=== PATIENT | female | born 1955 | race African-American/Black ===

== ENCOUNTER 2017-06-08 02:04 | Inpatient (IN) ==
[2017-06-08] MEDS ORDERED: ALBUTEROL/IPRATROPIUM 3 ML NEB RESP TX STA (03:54)
[2017-06-08] MEDS ORDERED: methylPREDNISolone SOD SUC 125 MG/2 ML VIAL IV STA (03:54)
[2017-06-08] MEDS ORDERED: ONDANSETRON 4 MG/2 ML VIAL IV STA (03:54)
[2017-06-08] MEDS ORDERED: methylPREDNISolone SOD SUC 125 MG/2 ML VIAL ONE (04:08)
[2017-06-08] MEDS ORDERED: ONDANSETRON 4 MG/2 ML VIAL ONE (04:08)
[2017-06-08 04:32] LABS: INR 1.2; PT Patient Result 12.3 SECS; Partial Thromboplastin Time 30.6 SECS (0-40)
[2017-06-08 04:41] LABS: Alanine Aminotransferase 19 U/L (13-56); Albumin 3.2 G/DL (3.4-5.0); Alkaline Phosphatase 58 U/L (45-117); Aspartate Amino Transferase 25 U/L (0-37); Bilirubin,Total < 0.39 MG/DL (0.2-1.0); Blood Urea Nitrogen 18 MG/DL (7-18); Glucose 185 MG/DL (74-106); Osmolality,Calculated 289.1 MOS/KG (273-304); Potassium 4.5 MMOL/L (3.5-5.1); Sodium 142 MMOL/L (136-145); Total Protein 6.6 G/DL (6.4-8.3)
[2017-06-08 04:42] LABS: Troponin I Only 0.049 NG/ML (0.00-0.045)
[2017-06-08 04:58] LABS: Basophils # 0.1 10*3/uL (0.0-0.2); Basophils % 0.5 % (0.0-0.8); Eosinophils # 0.1 10*3/uL (0.0-0.87); Eosinophils % 0.5 % (0.00-10.9); Hemoglobin 9.4 GM/DL (12.0-16.0); Immature Granulocytes % 0.5 %; Immature Granulocytes Absolute 0.05 #; Mean Corpuscular HGB Conc 31.3 GM/DL (32-36); Mean Corpuscular Hemoglobin 32 PG (27-34); Mean Corpuscular Volume 101.7 FL (87-102); Mean Platelet Volume 12.4 FL (9.6-12.0); Monocytes # 0.8 10*3/uL (0.11-0.8); Monocytes % 7.3 % (1.7-12.7); Neutrophils # 8.1 10*3/uL (1.4-7.4); Neutrophils % 73.2 % (38.7-73.9); Red Blood Count 2.95 MC/CUMM (3.8-5.5); Red Cell Distribution Width 14.4 % (9.3-17.3); White Blood Count 11.1 T/CUMM (4-12)
[2017-06-08 05:00] LABS: Platelet Count 105 T/CUMM (130-400)
[2017-06-08] MEDS ORDERED: FUROSEMIDE 40 MG/4 ML VIAL IV STA (05:49)
[2017-06-08] MEDS ORDERED: FUROSEMIDE 40 MG/4 ML VIAL ONE (06:25)
[2017-06-08] MEDS ORDERED: ONDANSETRON 4 MG/2 ML VIAL IV PRN (08:13)
[2017-06-08] MEDS ORDERED: GLUCAGON 1 MG VIAL IM PRN (08:13)
[2017-06-08] MEDS ORDERED: DEXTROSE 50% 25 GM/50 ML VIAL IV PRN (08:13)
[2017-06-08] MEDS ORDERED: PANTOPRAZOLE 40 MG TABLET PO SCH (09:00)
[2017-06-08] MEDS: FERROUS SULFATE 325 MG TABLET PO SCH (11:07)
[2017-06-08] MEDS: sulfaSALAzine 500 MG TABLET PO SCH ×3 (11:07→20:08)
[2017-06-08] MEDS: azaTHIOprine 50 MG TABLET PO SCH ×2 (11:07→20:09)
[2017-06-08] MEDS: predniSONE 10 MG TABLET PO SCH (11:08)
[2017-06-08] MEDS: POTASSIUM CHLORIDE 20 MEQ/15 ML UDCUP PO SCH (11:08)
[2017-06-08] MEDS: PANTOPRAZOLE 40 MG TABLET PO SCH (11:08)
[2017-06-08] MEDS: INSULIN REGULAR 100 UNIT/ML SUBCUT SCH ×3 (11:19→20:08)
[2017-06-08] MEDS: ISOSORBIDE MONONITRATE 30 MG TABLET PO SCH (17:52)
[2017-06-08] MEDS: CARVEDILOL 25 MG TABLET PO SCH (17:52)
[2017-06-08] MEDS: QUEtiapine 25 MG TABLET PO SCH (20:08)
[2017-06-08] MEDS: ESCITALOPRAM 10 MG TABLET PO SCH (20:09)
[2017-06-09 06:45] LABS: Basophils % 0.1 % (0.0-0.8); Eosinophils % 0.1 % (0.00-10.9); Hematocrit 24.6 VOL% (35.7-47.0); Hemoglobin 7.6 GM/DL (12.0-16.0); Immature Granulocytes % 0.5 %; Immature Granulocytes Absolute 0.04 #; Lymphocytes # 1.3 10*3/uL (1.4-4.0); Lymphocytes % 16.6 % (21.3-54.2); Mean Corpuscular HGB Conc 30.9 GM/DL (32-36); Mean Corpuscular Hemoglobin 31 PG (27-34); Mean Corpuscular Volume 100.8 FL (87-102); Mean Platelet Volume 12.2 FL (9.6-12.0); Monocytes % 12.6 % (1.7-12.7); Neutrophils # 5.6 10*3/uL (1.4-7.4); Neutrophils % 70.1 % (38.7-73.9); Platelet Count 171 T/CUMM (130-400); Red Blood Count 2.44 MC/CUMM (3.8-5.5); Red Cell Distribution Width 14.9 % (9.3-17.3)
[2017-06-09 07:12] LABS: Macrocytosis Slight; Poikilocytosis 1+
[2017-06-09 07:14] LABS: Calcium 8.1 MG/DL (8.5-10.1); Osmolality,Calculated 287.3 MOS/KG (273-304); Potassium 4.2 MMOL/L (3.5-5.1)
[2017-06-09] MEDS: INSULIN REGULAR 100 UNIT/ML SUBCUT SCH ×4 (07:48→20:51)
[2017-06-09] MEDS: predniSONE 10 MG TABLET PO SCH (09:11)
[2017-06-09] MEDS: sulfaSALAzine 500 MG TABLET PO SCH ×3 (09:11→20:51)
[2017-06-09] MEDS: POTASSIUM CHLORIDE 20 MEQ/15 ML UDCUP PO SCH (09:11)
[2017-06-09] MEDS: FERROUS SULFATE 325 MG TABLET PO SCH (09:11)
[2017-06-09] MEDS: azaTHIOprine 50 MG TABLET PO SCH ×2 (09:12→20:51)
[2017-06-09] MEDS: PANTOPRAZOLE 40 MG TABLET PO SCH (09:12)
[2017-06-09] MEDS: CARVEDILOL 25 MG TABLET PO SCH ×2 (09:12→16:43)
[2017-06-09] MEDS: ZINC OXIDE PASTE 113 GM TUBE TOP SCH ×2 (14:35→20:51)
[2017-06-09] MEDS: ISOSORBIDE MONONITRATE 30 MG TABLET PO SCH (16:43)
[2017-06-09] MEDS: ESCITALOPRAM 10 MG TABLET PO SCH (20:51)
[2017-06-09] MEDS: QUEtiapine 25 MG TABLET PO SCH (20:51)
[2017-06-10] MEDS: ZINC OXIDE PASTE 113 GM TUBE TOP SCH ×2 (08:00→23:48)
[2017-06-10] MEDS: INSULIN REGULAR 100 UNIT/ML SUBCUT SCH ×4 (08:07→20:29)
[2017-06-10] MEDS ORDERED: FUROSEMIDE 40 MG/4 ML VIAL IV ONE (09:35)
[2017-06-10 09:51] LABS: Hematocrit 27.5 VOL% (35.7-47.0); Hemoglobin 8.5 GM/DL (12.0-16.0)
[2017-06-10] MEDS ORDERED: ATORVASTATIN 20 MG TABLET PO ONE (10:39)
[2017-06-10 10:45] LABS: ABG Base Excess -2.8 MMOL/L (-2.5-2.5); ABG HCO3 21.9 MMOL/L (20-26); ABG Oxygen Saturation 85.7 % (95-100); ABG PCO2 48.5 MM HG (35-48); ABG PH 7.298 (7.35-7.45); ABG PO2 62.2 MM HG (80-95); ABG TCO2 22.2 MMOL/L (23-27); Allen Test Positive
[2017-06-10] MEDS: CARVEDILOL 25 MG TABLET PO SCH ×2 (10:54→16:28)
[2017-06-10] MEDS: sulfaSALAzine 500 MG TABLET PO SCH ×3 (10:55→20:29)
[2017-06-10] MEDS: PANTOPRAZOLE 40 MG TABLET PO SCH (10:56)
[2017-06-10] MEDS: FERROUS SULFATE 325 MG TABLET PO SCH (10:56)
[2017-06-10] MEDS: predniSONE 10 MG TABLET PO SCH (10:56)
[2017-06-10] MEDS: POTASSIUM CHLORIDE 20 MEQ/15 ML UDCUP PO SCH (10:56)
[2017-06-10] MEDS: azaTHIOprine 50 MG TABLET PO SCH ×2 (10:56→20:30)
[2017-06-10] MEDS ORDERED: POTASSIUM CHLORIDE RIDER 10 MEQ in PREMIX 1 EACH IV PRN (11:00)
[2017-06-10] MEDS ORDERED: MAGNESIUM SULF RIDER 2 GM in PREMIX 1 EACH IV PRN (11:00)
[2017-06-10] MEDS ORDERED: ASPIRIN CHEW 81 MG TABLET PO ONE (11:28)
[2017-06-10] MEDS ORDERED: LIDOCAINE 1% 20 ML VIAL ONE (11:31)
[2017-06-10] MEDS ORDERED: ENOXAPARIN 60 MG/0.6 ML SYRINGE ONE (12:17)
[2017-06-10] MEDS ORDERED: TIROFIBAN 0 MCG/0 ML PREMIX IV ONE (12:21)
[2017-06-10] MEDS ORDERED: TIROFIBAN 5,000 MCG/100 ML PREMIX IV ONE (12:25)
[2017-06-10] MEDS ORDERED: TIROFIBAN 5,000 MCG/100 ML PREMIX IV SCH (12:32)
[2017-06-10] MEDS ORDERED: TICAGRELOR 90 MG TABLET PO ONE (12:46)
[2017-06-10] MEDS ORDERED: ETOMIDATE 20 MG/10 ML VIAL IV ONE (13:14)
[2017-06-10] MEDS ORDERED: SEVOFLURANE 1 UNIT/15 MINUTE INH ONE (13:14)
[2017-06-10] MEDS ORDERED: FUROSEMIDE 20 MG/2 ML VIAL ONE (13:14)
[2017-06-10] MEDS ORDERED: METOPROLOL TARTRATE 5 MG/5 ML VIAL IV ONE (13:14)
[2017-06-10] MEDS ORDERED: SUCCINYLCHOLINE 200 MG/10 ML VIAL ONE (13:14)
[2017-06-10] MEDS ORDERED: ROCURONIUM 100 MG/10 ML VIAL IV ONE (13:15)
[2017-06-10] MEDS ORDERED: PROPOFOL 1,000 MG/100 ML BOTTLE IV ONE (13:21)
[2017-06-10 13:49] LABS: ABG HCO3 22.5 MMOL/L (20-26); ABG Oxygen Saturation 91.9 % (95-100); ABG PCO2 42.5 MM HG (35-48); ABG PH 7.342 (7.35-7.45); ABG PO2 71.8 MM HG (80-95); ABG TCO2 23.8 MMOL/L (23-27)
[2017-06-10] MEDS: PROPOFOL 1,000 MG/100 ML BOTTLE IV SCH (14:00)
[2017-06-10] MEDS: ROSUVASTATIN 20 MG TABLET PO SCH ×2 (15:17→20:29)
[2017-06-10] MEDS: NITROGLYCERIN 2% OINT 1 INCH/GM PACK TOP SCH ×2 (15:41→15:42)
[2017-06-10] MEDS ORDERED: ISOSORBIDE MONONITRATE 30 MG TABLET PO SCH (17:00)
[2017-06-10] MEDS: ESCITALOPRAM 10 MG TABLET PO SCH (20:29)
[2017-06-10] MEDS: PANTOPRAZOLE 40 MG VIAL IV SCH (20:29)
[2017-06-10] MEDS: QUEtiapine 25 MG TABLET PO SCH (20:30)
[2017-06-10] MEDS: TICAGRELOR 90 MG TABLET PO SCH (20:30)
[2017-06-10] MEDS ORDERED: ATORVASTATIN 20 MG TABLET PO SCH (21:00)
[2017-06-11] MEDS ORDERED: NOREPINEPHRINE 4 MG/4 ML VIAL IV ONE ×2 (00:54→00:57)
[2017-06-11] MEDS: NOREPINEPHRINE 8 MG in SODIUM CHLORIDE 0.9% 242 ML IV SCH (01:06)
[2017-06-11 03:22] LABS: Allen Test Positive; Pt O2 Delivery Device Ventilator
[2017-06-11 03:23] LABS: ABG Base Excess -2.7 MMOL/L (-2.5-2.5); ABG HCO3 21.6 MMOL/L (20-26); ABG Oxygen Saturation 98.1 % (95-100); ABG PCO2 34.8 MM HG (35-48); ABG PO2 214.3 MM HG (80-95); ABG TCO2 22.6 MMOL/L (23-27)
[2017-06-11] MEDS: PROPOFOL 1,000 MG/100 ML BOTTLE IV SCH ×4 (04:09→20:29)
[2017-06-11 04:26] LABS: Basophils # 0.1 10*3/uL (0.0-0.2); Basophils % 0.5 % (0.0-0.8); Eosinophils # 0.1 10*3/uL (0.0-0.87); Eosinophils % 0.6 % (0.00-10.9); Hematocrit 26.7 VOL% (35.7-47.0); Hemoglobin 8.3 GM/DL (12.0-16.0); Immature Granulocytes % 0.3 %; Immature Granulocytes Absolute 0.04 #; Lymphocytes # 0.9 10*3/uL (1.4-4.0); Lymphocytes % 7.8 % (21.3-54.2); Mean Corpuscular HGB Conc 31.1 GM/DL (32-36); Mean Corpuscular Hemoglobin 31 PG (27-34); Mean Corpuscular Volume 100.4 FL (87-102); Mean Platelet Volume 11.7 FL (9.6-12.0); Monocytes # 0.7 10*3/uL (0.11-0.8); Monocytes % 5.7 % (1.7-12.7); NRBC # 0.04 10*3/uL; Neutrophils # 9.9 10*3/uL (1.4-7.4); Neutrophils % 85.1 % (38.7-73.9); Platelet Count 191 T/CUMM (130-400); Red Blood Count 2.66 MC/CUMM (3.8-5.5); Red Cell Distribution Width 14.7 % (9.3-17.3); White Blood Count 11.7 T/CUMM (4-12)
[2017-06-11 05:07] LABS: Risk Ratio 3.74; VLDL CHOLESTEROL 38.8 MG/DL
[2017-06-11 06:59] LABS: Calcium 7.7 MG/DL (8.5-10.1); Magnesium 1.9 MG/DL (1.8-2.4)
[2017-06-11 07:04] LABS: Osmolality,Calculated 292.1 MOS/KG (273-304); Potassium 4.3 MMOL/L (3.5-5.1)
[2017-06-11] MEDS: INSULIN REGULAR 100 UNIT/ML SUBCUT SCH ×3 (08:18→18:31)
[2017-06-11] MEDS: FUROSEMIDE 40 MG/4 ML VIAL IV SCH ×2 (08:48→16:45)
[2017-06-11] MEDS: POTASSIUM CHLORIDE 20 MEQ/15 ML UDCUP PO SCH (08:48)
[2017-06-11] MEDS: FERROUS SULFATE 325 MG TABLET PO SCH (08:48)
[2017-06-11] MEDS: TICAGRELOR 90 MG TABLET PO SCH ×2 (08:48→20:30)
[2017-06-11] MEDS: azaTHIOprine 50 MG TABLET PO SCH ×2 (08:48→20:26)
[2017-06-11] MEDS: sulfaSALAzine 500 MG TABLET PO SCH ×3 (08:48→20:27)
[2017-06-11] MEDS: predniSONE 10 MG TABLET PO SCH (08:48)
[2017-06-11] MEDS: PANTOPRAZOLE 40 MG VIAL IV SCH ×2 (08:48→20:26)
[2017-06-11] MEDS: ZINC OXIDE PASTE 113 GM TUBE TOP SCH ×2 (08:49→20:27)
[2017-06-11] MEDS ORDERED: ASPIRIN EC 81 MG TABLET PO SCH (09:00)
[2017-06-11 11:09] LABS: ABG Base Excess -5.7 MMOL/L (-2.5-2.5); ABG HCO3 19.1 MMOL/L (20-26); ABG Oxygen Saturation 97.8 % (95-100); ABG PCO2 33.9 MM HG (35-48); ABG PH 7.368 (7.35-7.45); ABG PO2 157.7 MM HG (80-95); ABG TCO2 20.1 MMOL/L (23-27); Allen Test Positive; Pt O2 Delivery Device Ventilator
[2017-06-11] MEDS ORDERED: ENOXAPARIN 30 MG/0.3 ML SYRINGE SUBCUT SCH (14:00)
[2017-06-11] MEDS: METOPROLOL TARTRATE 25 MG TABLET PO SCH ×2 (16:43→20:30)
[2017-06-11] MEDS: ROSUVASTATIN 20 MG TABLET PO SCH (20:26)
[2017-06-11] MEDS: QUEtiapine 25 MG TABLET PO SCH (20:27)
[2017-06-11] MEDS: ESCITALOPRAM 10 MG TABLET PO SCH (20:27)
[2017-06-12] MEDS: INSULIN REGULAR 100 UNIT/ML SUBCUT SCH ×4 (00:16→19:11)
[2017-06-12] MEDS: PROPOFOL 1,000 MG/100 ML BOTTLE IV SCH ×4 (00:18→22:45)
[2017-06-12 03:41] LABS: ABG Base Excess 0.7 MMOL/L (-2.5-2.5); ABG Oxygen Saturation 96.8 % (95-100); ABG PCO2 37.7 MM HG (35-48); ABG PH 7.428 (7.35-7.45); ABG TCO2 23.6 MMOL/L (23-27); Allen Test Positive; Pt O2 Delivery Device Ventilator
[2017-06-12 04:43] LABS: Basophils % 0.2 % (0.0-0.8); Eosinophils % 0.2 % (0.00-10.9); Hematocrit 22.5 VOL% (35.7-47.0); Hemoglobin 7.1 GM/DL (12.0-16.0); Immature Granulocytes % 1.3 %; Immature Granulocytes Absolute 0.16 #; Lymphocytes # 0.9 10*3/uL (1.4-4.0); Lymphocytes % 7.2 % (21.3-54.2); Mean Corpuscular HGB Conc 31.6 GM/DL (32-36); Mean Corpuscular Hemoglobin 31 PG (27-34); Mean Corpuscular Volume 98.7 FL (87-102); Mean Platelet Volume 12.1 FL (9.6-12.0); Monocytes # 0.7 10*3/uL (0.11-0.8); Monocytes % 5.6 % (1.7-12.7); NRBC # 0.02 10*3/uL; Neutrophils # 10.9 10*3/uL (1.4-7.4); Neutrophils % 85.5 % (38.7-73.9); Platelet Count 197 T/CUMM (130-400); Red Blood Count 2.28 MC/CUMM (3.8-5.5); Red Cell Distribution Width 15.1 % (9.3-17.3); White Blood Count 12.7 T/CUMM (4-12)
[2017-06-12 05:18] LABS: Calcium 7.8 MG/DL (8.5-10.1); Magnesium 2.1 MG/DL (1.8-2.4); Osmolality,Calculated 297.4 MOS/KG (273-304); Potassium 4.1 MMOL/L (3.5-5.1)
[2017-06-12 05:19] LABS: Giant Platelets Few; Hypochromasia 1+; Lymphocytes 11 % (20-55); Macrocytosis Slight; Platelet Estimate Adequate; Segmented Neutrophils 84 % (50-85); Total Cells Counted 100
[2017-06-12 06:25] LABS: Basophils % 0.2 % (0.0-0.8); Eosinophils % 0.2 % (0.00-10.9); Hematocrit 22.4 VOL% (35.7-47.0); Hemoglobin 7.1 GM/DL (12.0-16.0); Immature Granulocytes % 1.6 %; Lymphocytes # 0.8 10*3/uL (1.4-4.0); Lymphocytes % 6.2 % (21.3-54.2); Mean Corpuscular HGB Conc 31.7 GM/DL (32-36); Mean Corpuscular Hemoglobin 31 PG (27-34); Mean Corpuscular Volume 98.7 FL (87-102); Mean Platelet Volume 11.5 FL (9.6-12.0); Monocytes # 0.7 10*3/uL (0.11-0.8); Monocytes % 5.2 % (1.7-12.7); Neutrophils # 11.1 10*3/uL (1.4-7.4); Neutrophils % 86.6 % (38.7-73.9); Platelet Count 180 T/CUMM (130-400); Red Blood Count 2.27 MC/CUMM (3.8-5.5); White Blood Count 12.8 T/CUMM (4-12)
[2017-06-12 06:56] LABS: Band Neutrophils 3 % (0-10); Eosinophils 2 % (0-10); Giant Platelets Few; Hypochromasia 1+; Lymphocytes 7 % (20-55); Macrocytosis Slight; Platelet Estimate Normal; Segmented Neutrophils 83 % (50-85); Total Cells Counted 100
[2017-06-12 07:04] LABS: Phosphorous 2.6 MG/DL (2.5-4.9); Prealbumin 12.3 MG/DL (20-40)
[2017-06-12] MEDS: NOREPINEPHRINE 8 MG in SODIUM CHLORIDE 0.9% 242 ML IV SCH (07:05)
[2017-06-12] MEDS ORDERED: SODIUM CHLORIDE 0.9% 250 ML IV PRN (09:01)
[2017-06-12] MEDS: azaTHIOprine 50 MG TABLET PO SCH ×2 (09:42→20:57)
[2017-06-12] MEDS: METOPROLOL TARTRATE 25 MG TABLET PO SCH ×3 (09:42→20:57)
[2017-06-12] MEDS: predniSONE 10 MG TABLET PO SCH (09:45)
[2017-06-12] MEDS ORDERED: FUROSEMIDE 100 MG/10 ML VIAL ONE (09:45)
[2017-06-12] MEDS: sulfaSALAzine 500 MG TABLET PO SCH ×3 (09:45→20:56)
[2017-06-12] MEDS: FERROUS SULFATE 325 MG TABLET PO SCH (09:46)
[2017-06-12] MEDS: POTASSIUM CHLORIDE 20 MEQ/15 ML UDCUP PO SCH (09:46)
[2017-06-12] MEDS: PANTOPRAZOLE 40 MG VIAL IV SCH ×2 (09:46→20:56)
[2017-06-12] MEDS: FUROSEMIDE 40 MG/4 ML VIAL IV SCH ×2 (09:47→15:29)
[2017-06-12] MEDS: ZINC OXIDE PASTE 113 GM TUBE TOP SCH ×2 (12:01→20:58)
[2017-06-12] MEDS ORDERED: PIPERACILLIN/TAZOBACTAM 2,250 MG in SODIUM CHLORIDE 0.9% 50 ML IV SCH (18:00)
[2017-06-12] MEDS ORDERED: PIPERACILLIN/TAZOBACTAM 2,250 MG in SODIUM CHLORIDE 0.9% 50 ML IV ONE (18:30)
[2017-06-12 18:35] LABS: Apearance,Urine CLEAR (Clear); Bilirubin,Urine Negative (Negative); Blood, Urine Moderate mg/dL (Negative); Glucose,Urine (UA) Negative (Negative); Hyaline Casts,Urine 1 /LPF (0-3); Ketones,Urine Negative (Negative); Mucus,Urine Occasional /LPF (Occasional); Nitrite,Urine Negative (Negative); Protein,Urine Negative; RBC,Urine <1 /HPF (0-4); Urine Color Yellow (Yellow); Urine Specific Gravity 1.005 (1.001-1.035); Urine Urobilinogen < 2.0 EU/DL (0.2-1.0); WBC,Urine 1 /HPF (0-6)
[2017-06-12] MEDS: ROSUVASTATIN 20 MG TABLET PO SCH (20:56)
[2017-06-12] MEDS: QUEtiapine 25 MG TABLET PO SCH (20:57)
[2017-06-12] MEDS: ESCITALOPRAM 10 MG TABLET PO SCH (20:57)
[2017-06-13] MEDS: NOREPINEPHRINE 8 MG in SODIUM CHLORIDE 0.9% 242 ML IV SCH (00:48)
[2017-06-13] MEDS: INSULIN REGULAR 100 UNIT/ML SUBCUT SCH ×4 (00:48→19:06)
[2017-06-13] MEDS: PIPERACILLIN/TAZOBACTAM 3,375 MG in SODIUM CHLORIDE 0.9% 100 ML IV SCH ×2 (01:32→16:40)
[2017-06-13 02:57] LABS: ABG Base Excess 2.3 MMOL/L (-2.5-2.5); ABG HCO3 26.3 MMOL/L (20-26); ABG Oxygen Saturation 97.2 % (95-100); ABG PCO2 38.1 MM HG (35-48); ABG PH 7.457 (7.35-7.45); ABG PO2 96.6 MM HG (80-95); ABG TCO2 27.5 MMOL/L (23-27)
[2017-06-13] MEDS: PROPOFOL 1,000 MG/100 ML BOTTLE IV SCH ×4 (04:30→23:49)
[2017-06-13 05:29] LABS: Basophils % 0.2 % (0.0-0.8); Eosinophils % 0.2 % (0.00-10.9); Hematocrit 24.1 VOL% (35.7-47.0); Hemoglobin 7.9 GM/DL (12.0-16.0); Immature Granulocytes % 1.7 %; Immature Granulocytes Absolute 0.22 #; Lymphocytes # 0.6 10*3/uL (1.4-4.0); Lymphocytes % 4.8 % (21.3-54.2); Mean Corpuscular HGB Conc 32.8 GM/DL (32-36); Mean Corpuscular Hemoglobin 30 PG (27-34); Mean Corpuscular Volume 92.7 FL (87-102); Mean Platelet Volume 11.7 FL (9.6-12.0); Monocytes # 0.5 10*3/uL (0.11-0.8); Monocytes % 3.5 % (1.7-12.7); NRBC # 0.02 10*3/uL; Neutrophils # 11.8 10*3/uL (1.4-7.4); Neutrophils % 89.6 % (38.7-73.9); Platelet Count 193 T/CUMM (130-400); Red Cell Distribution Width 15.8 % (9.3-17.3); White Blood Count 13.2 T/CUMM (4-12)
[2017-06-13 06:01] LABS: Calcium 8.4 MG/DL (8.5-10.1); Magnesium 2.2 MG/DL (1.8-2.4); Osmolality,Calculated 299.1 MOS/KG (273-304); Potassium 3.7 MMOL/L (3.5-5.1)
[2017-06-13 06:43] LABS: Segmented Neutrophils 89 % (50-85); Total Cells Counted 100
[2017-06-13 06:44] LABS: Anisocytosis 1+; Band Neutrophils 2 % (0-10); Elliptocytes Few; Eosinophils 2 % (0-10); Hypochromasia 2+; Lymphocytes 4 % (20-55); Macrocytosis 1+; Ovalocytes 1+; Platelet Estimate Normal; Target Cells Few
[2017-06-13] MEDS: predniSONE 10 MG TABLET PO SCH (09:37)
[2017-06-13] MEDS: METOPROLOL TARTRATE 25 MG TABLET PO SCH ×3 (09:37→20:33)
[2017-06-13] MEDS: POTASSIUM CHLORIDE 20 MEQ/15 ML UDCUP PO SCH (09:37)
[2017-06-13] MEDS: FERROUS SULFATE 325 MG TABLET PO SCH (09:37)
[2017-06-13] MEDS: FUROSEMIDE 40 MG/4 ML VIAL IV SCH ×2 (09:37→16:40)
[2017-06-13] MEDS: azaTHIOprine 50 MG TABLET PO SCH ×2 (09:37→20:37)
[2017-06-13] MEDS: sulfaSALAzine 500 MG TABLET PO SCH ×3 (09:37→20:34)
[2017-06-13] MEDS: ZINC OXIDE PASTE 113 GM TUBE TOP SCH ×2 (09:38→20:35)
[2017-06-13] MEDS: PANTOPRAZOLE 40 MG VIAL IV SCH ×2 (11:12→20:33)
[2017-06-13] MEDS: ACETAMINOPHEN 325 MG TABLET PO PRN (16:39)
[2017-06-13] MEDS: ROSUVASTATIN 20 MG TABLET PO SCH (20:33)
[2017-06-13] MEDS: ESCITALOPRAM 10 MG TABLET PO SCH (20:34)
[2017-06-13] MEDS: QUEtiapine 25 MG TABLET PO SCH (20:34)
[2017-06-14] MEDS: INSULIN REGULAR 100 UNIT/ML SUBCUT SCH ×4 (00:42→18:23)
[2017-06-14] MEDS: PIPERACILLIN/TAZOBACTAM 3,375 MG in SODIUM CHLORIDE 0.9% 100 ML IV SCH ×2 (01:58→15:32)
[2017-06-14 03:16] LABS: ABG Base Excess 1.8 MMOL/L (-2.5-2.5); ABG HCO3 26.1 MMOL/L (20-26); ABG Oxygen Saturation 97.5 % (95-100); ABG PCO2 40.4 MM HG (35-48); ABG PH 7.422 (7.35-7.45); ABG TCO2 24.8 MMOL/L (23-27); Pt O2 Delivery Device Ventilator
[2017-06-14 04:53] LABS: Basophils % 0.1 % (0.0-0.8); Eosinophils # 0.1 10*3/uL (0.0-0.87); Eosinophils % 1.1 % (0.00-10.9); Hematocrit 23.4 VOL% (35.7-47.0); Hemoglobin 7.6 GM/DL (12.0-16.0); Immature Granulocytes % 1.4 %; Immature Granulocytes Absolute 0.12 #; Lymphocytes # 0.7 10*3/uL (1.4-4.0); Lymphocytes % 8.7 % (21.3-54.2); Mean Corpuscular HGB Conc 32.5 GM/DL (32-36); Mean Corpuscular Hemoglobin 31 PG (27-34); Mean Platelet Volume 11.7 FL (9.6-12.0); Monocytes # 0.6 10*3/uL (0.11-0.8); Monocytes % 6.7 % (1.7-12.7); NRBC # 0.06 10*3/uL; Neutrophils # 6.9 10*3/uL (1.4-7.4); Platelet Count 200 T/CUMM (130-400); Red Blood Count 2.49 MC/CUMM (3.8-5.5); Red Cell Distribution Width 15.9 % (9.3-17.3); White Blood Count 8.4 T/CUMM (4-12)
[2017-06-14 05:23] LABS: Calcium 8.2 MG/DL (8.5-10.1); Magnesium 2.4 MG/DL (1.8-2.4); Osmolality,Calculated 300.4 MOS/KG (273-304); Potassium 4.2 MMOL/L (3.5-5.1)
[2017-06-14 05:27] LABS: Calcium 8.4 MG/DL (8.5-10.1); Osmolality,Calculated 301.4 MOS/KG (273-304); Phosphorous 3.2 MG/DL (2.5-4.9); Prealbumin 11.1 MG/DL (20-40)
[2017-06-14] MEDS: PROPOFOL 1,000 MG/100 ML BOTTLE IV SCH ×4 (06:10→21:45)
[2017-06-14] MEDS: FUROSEMIDE 40 MG/4 ML VIAL IV SCH ×2 (09:41→15:33)
[2017-06-14] MEDS: POTASSIUM CHLORIDE 20 MEQ/15 ML UDCUP PO SCH (09:41)
[2017-06-14] MEDS: sulfaSALAzine 500 MG TABLET PO SCH ×3 (09:42→20:15)
[2017-06-14] MEDS: METOPROLOL TARTRATE 25 MG TABLET PO SCH ×3 (09:42→20:16)
[2017-06-14] MEDS: ZINC OXIDE PASTE 113 GM TUBE TOP SCH ×2 (09:42→20:17)
[2017-06-14] MEDS: FERROUS SULFATE 325 MG TABLET PO SCH (09:42)
[2017-06-14] MEDS: predniSONE 10 MG TABLET PO SCH (09:42)
[2017-06-14] MEDS: PANTOPRAZOLE 40 MG VIAL IV SCH ×2 (09:42→20:15)
[2017-06-14] MEDS: azaTHIOprine 50 MG TABLET PO SCH ×2 (09:42→20:15)
[2017-06-14] MEDS ORDERED: SODIUM CHLORIDE 0.9% 250 ML IV PRN (09:51)
[2017-06-14] MEDS: ESCITALOPRAM 10 MG TABLET PO SCH (20:16)
[2017-06-14] MEDS: ROSUVASTATIN 20 MG TABLET PO SCH (20:16)
[2017-06-14] MEDS: QUEtiapine 25 MG TABLET PO SCH (20:16)
[2017-06-15] MEDS: INSULIN REGULAR 100 UNIT/ML SUBCUT SCH ×4 (00:01→17:59)
[2017-06-15] MEDS: PIPERACILLIN/TAZOBACTAM 3,375 MG in SODIUM CHLORIDE 0.9% 100 ML IV SCH ×2 (03:09→15:13)
[2017-06-15 03:10] LABS: Allen Test Positive; Pt O2 Delivery Device Ventilator
[2017-06-15 03:19] LABS: ABG Base Excess 1.8 MMOL/L (-2.5-2.5); ABG Oxygen Saturation 97.5 % (95-100); ABG PH 7.433 (7.35-7.45); ABG TCO2 23.9 MMOL/L (23-27)
[2017-06-15] MEDS: PROPOFOL 1,000 MG/100 ML BOTTLE IV SCH ×5 (03:19→22:32)
[2017-06-15 04:52] LABS: Basophils % 0.2 % (0.0-0.8); Eosinophils # 0.2 10*3/uL (0.0-0.87); Eosinophils % 1.7 % (0.00-10.9); Hematocrit 27.8 VOL% (35.7-47.0); Hemoglobin 9.1 GM/DL (12.0-16.0); Immature Granulocytes % 1.2 %; Immature Granulocytes Absolute 0.11 #; Lymphocytes # 0.9 10*3/uL (1.4-4.0); Mean Corpuscular HGB Conc 32.7 GM/DL (32-36); Mean Corpuscular Hemoglobin 30 PG (27-34); Mean Corpuscular Volume 91.7 FL (87-102); Mean Platelet Volume 11.4 FL (9.6-12.0); Monocytes # 0.9 10*3/uL (0.11-0.8); Monocytes % 9.6 % (1.7-12.7); NRBC # 0.04 10*3/uL; Neutrophils # 7.2 10*3/uL (1.4-7.4); Neutrophils % 77.3 % (38.7-73.9); Platelet Count 227 T/CUMM (130-400); Red Blood Count 3.03 MC/CUMM (3.8-5.5); Red Cell Distribution Width 18.5 % (9.3-17.3); White Blood Count 9.3 T/CUMM (4-12)
[2017-06-15 05:25] LABS: Calcium 8.9 MG/DL (8.5-10.1); Magnesium 2.7 MG/DL (1.8-2.4); Osmolality,Calculated 306.5 MOS/KG (273-304); Potassium 4.2 MMOL/L (3.5-5.1)
[2017-06-15] MEDS ORDERED: FUROSEMIDE 40 MG/4 ML VIAL IV SCH (09:00)
[2017-06-15] MEDS: PANTOPRAZOLE 40 MG VIAL IV SCH ×2 (09:22→21:25)
[2017-06-15] MEDS: ZINC OXIDE PASTE 113 GM TUBE TOP SCH ×2 (09:23→21:29)
[2017-06-15] MEDS: FUROSEMIDE 40 MG/4 ML VIAL IV SCH (09:47)
[2017-06-15] MEDS ORDERED: ETOMIDATE 20 MG/10 ML VIAL IV ONE (13:46)
[2017-06-15] MEDS: sulfaSALAzine 500 MG TABLET PO SCH ×3 (13:46→21:27)
[2017-06-15] MEDS ORDERED: ROCURONIUM 100 MG/10 ML VIAL IV ONE (13:46)
[2017-06-15] MEDS: METOPROLOL TARTRATE 5 MG/5 ML VIAL IV PRN (13:56)
[2017-06-15] MEDS: METOPROLOL TARTRATE 25 MG TABLET PO SCH ×2 (13:59→21:28)
[2017-06-15] MEDS: POTASSIUM CHLORIDE 20 MEQ/15 ML UDCUP PO SCH (15:14)
[2017-06-15] MEDS: azaTHIOprine 50 MG TABLET PO SCH ×2 (15:15→21:28)
[2017-06-15] MEDS: predniSONE 10 MG TABLET PO SCH (15:15)
[2017-06-15] MEDS: FERROUS SULFATE 325 MG TABLET PO SCH (15:15)
[2017-06-15] MEDS: ROSUVASTATIN 20 MG TABLET PO SCH (21:27)
[2017-06-15] MEDS: QUEtiapine 25 MG TABLET PO SCH (21:28)
[2017-06-15] MEDS: ESCITALOPRAM 10 MG TABLET PO SCH (21:28)
[2017-06-15] MEDS: ACETAMINOPHEN 325 MG TABLET PO PRN (21:28)
[2017-06-16] MEDS: INSULIN REGULAR 100 UNIT/ML SUBCUT SCH ×4 (00:45→17:49)
[2017-06-16] MEDS: PIPERACILLIN/TAZOBACTAM 3,375 MG in SODIUM CHLORIDE 0.9% 100 ML IV SCH ×2 (01:51→16:00)
[2017-06-16] MEDS: PROPOFOL 1,000 MG/100 ML BOTTLE IV SCH ×4 (05:00→20:45)
[2017-06-16 05:18] LABS: Basophils % 0.4 % (0.0-0.8); Eosinophils # 0.1 10*3/uL (0.0-0.87); Eosinophils % 1.2 % (0.00-10.9); Hematocrit 26.7 VOL% (35.7-47.0); Hemoglobin 8.5 GM/DL (12.0-16.0); Immature Granulocytes % 1.6 %; Immature Granulocytes Absolute 0.16 #; Lymphocytes % 9.8 % (21.3-54.2); Mean Corpuscular HGB Conc 31.8 GM/DL (32-36); Mean Corpuscular Hemoglobin 30 PG (27-34); Mean Platelet Volume 11.1 FL (9.6-12.0); Monocytes # 1.3 10*3/uL (0.11-0.8); Monocytes % 13.4 % (1.7-12.7); NRBC # 0.03 10*3/uL; Neutrophils # 7.1 10*3/uL (1.4-7.4); Neutrophils % 73.6 % (38.7-73.9); Platelet Count 236 T/CUMM (130-400); Red Blood Count 2.87 MC/CUMM (3.8-5.5); Red Cell Distribution Width 18.2 % (9.3-17.3); White Blood Count 9.7 T/CUMM (4-12)
[2017-06-16 05:44] LABS: Calcium 8.7 MG/DL (8.5-10.1); Osmolality,Calculated 312.8 MOS/KG (273-304); Potassium 4.8 MMOL/L (3.5-5.1)
[2017-06-16 07:44] LABS: Allen Test Positive; Pt O2 Delivery Device Ventilator
[2017-06-16 07:45] LABS: ABG Base Excess -2.7 MMOL/L (-2.5-2.5); ABG HCO3 22.1 MMOL/L (20-26); ABG Oxygen Saturation 96.1 % (95-100); ABG PCO2 40.7 MM HG (35-48); ABG PH 7.353 (7.35-7.45); ABG TCO2 21.1 MMOL/L (23-27)
[2017-06-16] MEDS: FERROUS SULFATE 325 MG TABLET PO SCH (09:53)
[2017-06-16] MEDS: CLOPIDOGREL 75 MG TABLET PO SCH (09:53)
[2017-06-16] MEDS: sulfaSALAzine 500 MG TABLET PO SCH ×3 (09:53→21:23)
[2017-06-16] MEDS: predniSONE 10 MG TABLET PO SCH (09:53)
[2017-06-16] MEDS: POTASSIUM CHLORIDE 20 MEQ/15 ML UDCUP PO SCH (09:53)
[2017-06-16] MEDS: METOPROLOL TARTRATE 25 MG TABLET PO SCH ×2 (09:54→21:26)
[2017-06-16] MEDS: PANTOPRAZOLE 40 MG VIAL IV SCH ×2 (09:54→21:27)
[2017-06-16] MEDS: ZINC OXIDE PASTE 113 GM TUBE TOP SCH ×2 (09:54→21:26)
[2017-06-16] MEDS: azaTHIOprine 50 MG TABLET PO SCH ×2 (09:54→21:23)
[2017-06-16 10:17] LABS: Hemoglobin 8.5 GM/DL (12.0-16.0)
[2017-06-16 11:57] LABS: Hepatitis A Ab IgM Result Negative (Negative); Hepatitis B Core IgM Quant 0.15 Index; Hepatitis B Core IgM Result Negative (Negative); Hepatitis B Surface Ag Quant < 0.10 Index; Hepatitis B Surface Ag Result Negative (Negative); Hepatitis C Virus Ab Quant 0.16 Index; Hepatitis C Virus Ab Result Negative (Negative)
[2017-06-16] MEDS ORDERED: HEPARIN 10,000 UNIT/10 ML VIAL IV PRN (13:33)
[2017-06-16] MEDS: METOPROLOL TARTRATE 5 MG/5 ML VIAL IV PRN (15:40)
[2017-06-16] MEDS: ROSUVASTATIN 20 MG TABLET PO SCH (21:23)
[2017-06-16] MEDS: ESCITALOPRAM 10 MG TABLET PO SCH (21:23)
[2017-06-16] MEDS: QUEtiapine 25 MG TABLET PO SCH (21:23)
[2017-06-17] MEDS: INSULIN REGULAR 100 UNIT/ML SUBCUT SCH ×4 (00:38→17:58)
[2017-06-17 03:05] LABS: Allen Test Positive; Pt O2 Delivery Device Ventilator
[2017-06-17 03:06] LABS: ABG Base Excess -0.8 MMOL/L (-2.5-2.5); ABG HCO3 23.7 MMOL/L (20-26); ABG Oxygen Saturation 98.1 % (95-100); ABG PCO2 40.9 MM HG (35-48); ABG TCO2 22.4 MMOL/L (23-27)
[2017-06-17] MEDS: PIPERACILLIN/TAZOBACTAM 3,375 MG in SODIUM CHLORIDE 0.9% 100 ML IV SCH ×2 (04:13→16:21)
[2017-06-17] MEDS: PROPOFOL 1,000 MG/100 ML BOTTLE IV SCH ×4 (04:42→19:10)
[2017-06-17 05:42] LABS: Basophils % 0.4 % (0.0-0.8); Eosinophils # 0.2 10*3/uL (0.0-0.87); Eosinophils % 2.5 % (0.00-10.9); Hematocrit 26.9 VOL% (35.7-47.0); Hemoglobin 8.5 GM/DL (12.0-16.0); Immature Granulocytes % 3.9 %; Immature Granulocytes Absolute 0.38 #; Lymphocytes # 1.4 10*3/uL (1.4-4.0); Lymphocytes % 14.5 % (21.3-54.2); Mean Corpuscular HGB Conc 31.6 GM/DL (32-36); Mean Corpuscular Hemoglobin 30 PG (27-34); Mean Corpuscular Volume 93.4 FL (87-102); Mean Platelet Volume 11.6 FL (9.6-12.0); Monocytes # 1.3 10*3/uL (0.11-0.8); Monocytes % 13.3 % (1.7-12.7); NRBC # 0.05 10*3/uL; Neutrophils # 6.4 10*3/uL (1.4-7.4); Neutrophils % 65.4 % (38.7-73.9); Platelet Count 298 T/CUMM (130-400); Red Blood Count 2.88 MC/CUMM (3.8-5.5); Red Cell Distribution Width 18.2 % (9.3-17.3); White Blood Count 9.7 T/CUMM (4-12)
[2017-06-17 06:15] LABS: Calcium 8.9 MG/DL (8.5-10.1); Magnesium 2.8 MG/DL (1.8-2.4); Phosphorous 3.9 MG/DL (2.5-4.9); Potassium 4.8 MMOL/L (3.5-5.1)
[2017-06-17] MEDS: POTASSIUM CHLORIDE 20 MEQ/15 ML UDCUP PO SCH (09:08)
[2017-06-17] MEDS: CLOPIDOGREL 75 MG TABLET PO SCH (09:08)
[2017-06-17] MEDS: PANTOPRAZOLE 40 MG VIAL IV SCH ×2 (09:08→21:34)
[2017-06-17] MEDS: azaTHIOprine 50 MG TABLET PO SCH ×2 (09:08→21:33)
[2017-06-17] MEDS: FERROUS SULFATE 325 MG TABLET PO SCH (09:08)
[2017-06-17] MEDS: predniSONE 10 MG TABLET PO SCH (09:08)
[2017-06-17] MEDS: sulfaSALAzine 500 MG TABLET PO SCH ×3 (09:08→21:33)
[2017-06-17] MEDS: METOPROLOL TARTRATE 25 MG TABLET PO SCH (09:08)
[2017-06-17] MEDS: ZINC OXIDE PASTE 113 GM TUBE TOP SCH ×2 (09:09→21:34)
[2017-06-17] MEDS ORDERED: METOPROLOL TARTRATE 25 MG TABLET PO ONE (10:30)
[2017-06-17 15:47] LABS: Hematocrit 31.4 VOL% (35.7-47.0); Hemoglobin 9.9 GM/DL (12.0-16.0)
[2017-06-17] MEDS: METOPROLOL TARTRATE 5 MG/5 ML VIAL IV PRN (17:38)
[2017-06-17] MEDS: ESCITALOPRAM 10 MG TABLET PO SCH (21:33)
[2017-06-17] MEDS: ROSUVASTATIN 20 MG TABLET PO SCH (21:33)
[2017-06-17] MEDS: METOPROLOL TARTRATE 50 MG TABLET PO SCH (21:33)
[2017-06-17] MEDS: QUEtiapine 25 MG TABLET PO SCH (21:34)
[2017-06-18] MEDS: INSULIN REGULAR 100 UNIT/ML SUBCUT SCH ×4 (00:03→18:41)
[2017-06-18] MEDS: PROPOFOL 1,000 MG/100 ML BOTTLE IV SCH ×5 (00:47→23:30)
[2017-06-18 03:25] LABS: ABG Base Excess 1.2 MMOL/L (-2.5-2.5); ABG HCO3 24.7 MMOL/L (20-26); ABG PH 7.454 (7.35-7.45); ABG PO2 111.4 MM HG (80-95); ABG TCO2 25.8 MMOL/L (23-27)
[2017-06-18 03:26] LABS: ABG Oxygen Saturation 98.3 % (95-100)
[2017-06-18] MEDS: PIPERACILLIN/TAZOBACTAM 3,375 MG in SODIUM CHLORIDE 0.9% 100 ML IV SCH ×2 (04:10→17:33)
[2017-06-18 05:18] LABS: Basophils % 0.4 % (0.0-0.8); Eosinophils # 0.2 10*3/uL (0.0-0.87); Eosinophils % 2.5 % (0.00-10.9); Hematocrit 27.4 VOL% (35.7-47.0); Hemoglobin 8.7 GM/DL (12.0-16.0); Immature Granulocytes % 6.3 %; Immature Granulocytes Absolute 0.61 #; Lymphocytes # 1.7 10*3/uL (1.4-4.0); Lymphocytes % 17.5 % (21.3-54.2); Mean Corpuscular HGB Conc 31.8 GM/DL (32-36); Mean Corpuscular Hemoglobin 30 PG (27-34); Mean Corpuscular Volume 93.8 FL (87-102); Mean Platelet Volume 11.1 FL (9.6-12.0); Monocytes # 1.3 10*3/uL (0.11-0.8); Monocytes % 12.9 % (1.7-12.7); NRBC # 0.12 10*3/uL; Neutrophils # 5.9 10*3/uL (1.4-7.4); Neutrophils % 60.4 % (38.7-73.9); Platelet Count 344 T/CUMM (130-400); Red Blood Count 2.92 MC/CUMM (3.8-5.5); Red Cell Distribution Width 17.7 % (9.3-17.3); White Blood Count 9.7 T/CUMM (4-12)
[2017-06-18 05:39] LABS: Band Neutrophils 2 % (0-10); Eosinophils 3 % (0-10); Giant Platelets Few; Hypochromasia 1+; Lymphocytes 20 % (20-55); Myelocytes 2 %; Nucleated Red Blood Cells 1 (0-5); Platelet Estimate Adequate; Segmented Neutrophils 56 % (50-85); Total Cells Counted 100
[2017-06-18 05:58] LABS: Calcium 8.8 MG/DL (8.5-10.1); Magnesium 2.7 MG/DL (1.8-2.4); Potassium 4.4 MMOL/L (3.5-5.1)
[2017-06-18] MEDS: FERROUS SULFATE 325 MG TABLET PO SCH (08:58)
[2017-06-18] MEDS: CLOPIDOGREL 75 MG TABLET PO SCH (08:59)
[2017-06-18] MEDS: METOPROLOL TARTRATE 50 MG TABLET PO SCH ×2 (08:59→20:28)
[2017-06-18] MEDS: predniSONE 10 MG TABLET PO SCH (08:59)
[2017-06-18] MEDS: azaTHIOprine 50 MG TABLET PO SCH ×2 (08:59→20:28)
[2017-06-18] MEDS: sulfaSALAzine 500 MG TABLET PO SCH ×3 (08:59→20:27)
[2017-06-18] MEDS: PANTOPRAZOLE 40 MG VIAL IV SCH ×2 (09:09→20:28)
[2017-06-18 12:50] LABS: ABG Base Excess -1.5 MMOL/L (-2.5-2.5); ABG HCO3 23.7 MMOL/L (20-26); ABG Oxygen Saturation 97.8 % (95-100); ABG PCO2 41.8 MM HG (35-48); ABG PH 7.371 (7.35-7.45); ABG PO2 109.7 MM HG (80-95)
[2017-06-18] MEDS: ZINC OXIDE PASTE 113 GM TUBE TOP SCH ×2 (13:27→20:29)
[2017-06-18 16:53] LABS: Hematocrit 31.1 VOL% (35.7-47.0); Hemoglobin 9.8 GM/DL (12.0-16.0)
[2017-06-18] MEDS: METOPROLOL TARTRATE 5 MG/5 ML VIAL IV PRN (16:56)
[2017-06-18] MEDS: ROSUVASTATIN 20 MG TABLET PO SCH (20:28)
[2017-06-18] MEDS: QUEtiapine 25 MG TABLET PO SCH (20:28)
[2017-06-18] MEDS: ESCITALOPRAM 10 MG TABLET PO SCH (20:28)
[2017-06-19] MEDS: INSULIN REGULAR 100 UNIT/ML SUBCUT SCH ×5 (00:23→23:50)
[2017-06-19 03:07] LABS: Allen Test Positive; Pt O2 Delivery Device Ventilator
[2017-06-19 03:09] LABS: ABG HCO3 24.5 MMOL/L (20-26); ABG Oxygen Saturation 98.8 % (95-100); ABG PCO2 39.9 MM HG (35-48); ABG TCO2 23.9 MMOL/L (23-27)
[2017-06-19] MEDS: PIPERACILLIN/TAZOBACTAM 3,375 MG in SODIUM CHLORIDE 0.9% 100 ML IV SCH ×2 (04:00→16:14)
[2017-06-19] MEDS: PROPOFOL 1,000 MG/100 ML BOTTLE IV SCH ×3 (04:52→22:38)
[2017-06-19 06:20] LABS: Basophils # 0.1 10*3/uL (0.0-0.2); Basophils % 0.4 % (0.0-0.8); Eosinophils # 0.3 10*3/uL (0.0-0.87); Eosinophils % 2.4 % (0.00-10.9); Hematocrit 27.2 VOL% (35.7-47.0); Hemoglobin 8.4 GM/DL (12.0-16.0); Immature Granulocytes % 4.5 %; Immature Granulocytes Absolute 0.53 #; Lymphocytes # 1.8 10*3/uL (1.4-4.0); Mean Corpuscular HGB Conc 30.9 GM/DL (32-36); Mean Corpuscular Hemoglobin 29 PG (27-34); Mean Corpuscular Volume 95.1 FL (87-102); Mean Platelet Volume 11.1 FL (9.6-12.0); Monocytes # 1.5 10*3/uL (0.11-0.8); Monocytes % 12.5 % (1.7-12.7); NRBC # 0.14 10*3/uL; Neutrophils # 7.7 10*3/uL (1.4-7.4); Neutrophils % 65.2 % (38.7-73.9); Platelet Count 407 T/CUMM (130-400); Red Blood Count 2.86 MC/CUMM (3.8-5.5); Red Cell Distribution Width 17.6 % (9.3-17.3); White Blood Count 11.8 T/CUMM (4-12)
[2017-06-19 06:47] LABS: Calcium 9.1 MG/DL (8.5-10.1); Magnesium 2.6 MG/DL (1.8-2.4); Osmolality,Calculated 290.7 MOS/KG (273-304); Potassium 4.5 MMOL/L (3.5-5.1)
[2017-06-19 07:58] LABS: Eosinophils 3 % (0-10); Hypochromasia 1+; Lymphocytes 12 % (20-55); Macrocytosis 1+; Myelocytes 2 %; Platelet Estimate Adequate; Segmented Neutrophils 69 % (50-85); Total Cells Counted 100
[2017-06-19] MEDS: azaTHIOprine 50 MG TABLET PO SCH ×2 (08:18→21:12)
[2017-06-19] MEDS: CLOPIDOGREL 75 MG TABLET PO SCH (08:18)
[2017-06-19] MEDS: sulfaSALAzine 500 MG TABLET PO SCH ×3 (08:18→21:12)
[2017-06-19] MEDS: FERROUS SULFATE 325 MG TABLET PO SCH (08:18)
[2017-06-19] MEDS: METOPROLOL TARTRATE 50 MG TABLET PO SCH ×2 (08:19→21:12)
[2017-06-19] MEDS: PANTOPRAZOLE 40 MG VIAL IV SCH ×2 (08:19→21:13)
[2017-06-19] MEDS: predniSONE 10 MG TABLET PO SCH (08:19)
[2017-06-19] MEDS: ZINC OXIDE PASTE 113 GM TUBE TOP SCH ×2 (08:19→21:18)
[2017-06-19] MEDS: ROSUVASTATIN 20 MG TABLET PO SCH (21:12)
[2017-06-19] MEDS: INSULIN GLARGINE 100 UNIT/ML SUBCUT SCH (21:12)
[2017-06-20 03:15] LABS: ABG Base Excess -4.2 MMOL/L (-2.5-2.5); ABG HCO3 20.8 MMOL/L (20-26); ABG Oxygen Saturation 94.8 % (95-100); ABG PCO2 38.4 MM HG (35-48); ABG PH 7.346 (7.35-7.45); ABG PO2 81.8 MM HG (80-95); ABG TCO2 19.8 MMOL/L (23-27); Allen Test Positive; Pt O2 Delivery Device Ventilator
[2017-06-20] MEDS: PIPERACILLIN/TAZOBACTAM 3,375 MG in SODIUM CHLORIDE 0.9% 100 ML IV SCH ×2 (04:20→17:39)
[2017-06-20 04:54] LABS: Hemoglobin 8.3 GM/DL (12.0-16.0); Mean Corpuscular HGB Conc 30.7 GM/DL (32-36); Mean Corpuscular Hemoglobin 30 PG (27-34); Mean Corpuscular Volume 96.8 FL (87-102); Platelet Count 436 T/CUMM (130-400); Red Blood Count 2.79 MC/CUMM (3.8-5.5); Red Cell Distribution Width 17.6 % (9.3-17.3); White Blood Count 13.1 T/CUMM (4-12)
[2017-06-20 04:55] LABS: Basophils # 0.1 10*3/uL (0.0-0.2); Basophils % 0.4 % (0.0-0.8); Eosinophils # 0.3 10*3/uL (0.0-0.87); Eosinophils % 2.2 % (0.00-10.9); Immature Granulocytes % 4.4 %; Immature Granulocytes Absolute 0.58 #; Lymphocytes # 2.1 10*3/uL (1.4-4.0); Lymphocytes % 16.4 % (21.3-54.2); Mean Platelet Volume 10.3 FL (9.6-12.0); Monocytes # 1.4 10*3/uL (0.11-0.8); Monocytes % 10.9 % (1.7-12.7); NRBC # 0.14 10*3/uL; Neutrophils # 8.6 10*3/uL (1.4-7.4); Neutrophils % 65.7 % (38.7-73.9)
[2017-06-20 05:21] LABS: Calcium 9.3 MG/DL (8.5-10.1); Magnesium 2.8 MG/DL (1.8-2.4); Osmolality,Calculated 305.8 MOS/KG (273-304); Potassium 4.9 MMOL/L (3.5-5.1)
[2017-06-20] MEDS: INSULIN REGULAR 100 UNIT/ML SUBCUT SCH ×3 (05:36→18:24)
[2017-06-20 05:56] LABS: Band Neutrophils 6 % (0-10); Lymphocytes 21 % (20-55); Metamyelocytes 1 %; Myelocytes 1 %; Nucleated Red Blood Cells 2 (0-5); Segmented Neutrophils 69 % (50-85); Total Cells Counted 100
[2017-06-20 05:57] LABS: Anisocytosis 1+
[2017-06-20 05:58] LABS: Hypochromasia 1+; Platelet Estimate Normal
[2017-06-20] MEDS: PROPOFOL 1,000 MG/100 ML BOTTLE IV SCH ×4 (06:26→22:30)
[2017-06-20] MEDS: predniSONE 10 MG TABLET PO SCH (09:50)
[2017-06-20] MEDS: azaTHIOprine 50 MG TABLET PO SCH ×2 (09:51→20:23)
[2017-06-20] MEDS: ZINC OXIDE PASTE 113 GM TUBE TOP SCH ×2 (09:51→20:29)
[2017-06-20] MEDS: FERROUS SULFATE 325 MG TABLET PO SCH (09:51)
[2017-06-20] MEDS: METOPROLOL TARTRATE 5 MG/5 ML VIAL IV PRN (09:51)
[2017-06-20] MEDS: METOPROLOL TARTRATE 50 MG TABLET PO SCH ×2 (09:51→20:23)
[2017-06-20] MEDS: PANTOPRAZOLE 40 MG VIAL IV SCH ×2 (09:51→20:29)
[2017-06-20] MEDS: sulfaSALAzine 500 MG TABLET PO SCH ×3 (09:51→20:23)
[2017-06-20] MEDS: INSULIN GLARGINE 100 UNIT/ML SUBCUT SCH ×2 (10:46→20:23)
[2017-06-20] MEDS: ROSUVASTATIN 20 MG TABLET PO SCH (20:23)
[2017-06-21] MEDS: INSULIN REGULAR 100 UNIT/ML SUBCUT SCH ×5 (00:15→23:38)
[2017-06-21 03:40] LABS: ABG Base Excess -6.8 MMOL/L (-2.5-2.5); ABG HCO3 18.8 MMOL/L (20-26); ABG Oxygen Saturation 98.1 % (95-100); ABG PCO2 38.9 MM HG (35-48); ABG PH 7.298 (7.35-7.45); ABG TCO2 18.2 MMOL/L (23-27)
[2017-06-21] MEDS: PIPERACILLIN/TAZOBACTAM 3,375 MG in SODIUM CHLORIDE 0.9% 100 ML IV SCH ×2 (04:55→15:42)
[2017-06-21 05:46] LABS: Calcium 9.3 MG/DL (8.5-10.1); Osmolality,Calculated 314.1 MOS/KG (273-304); Potassium 5.7 MMOL/L (3.5-5.1)
[2017-06-21 05:50] LABS: Phosphorous 5.4 MG/DL (2.5-4.9); Prealbumin 44.7 MG/DL (20-40)
[2017-06-21] MEDS: PROPOFOL 1,000 MG/100 ML BOTTLE IV SCH ×2 (05:53→15:41)
[2017-06-21 05:58] LABS: Basophils % 0.2 % (0.0-0.8); Eosinophils # 0.3 10*3/uL (0.0-0.87); Eosinophils % 1.9 % (0.00-10.9); Hematocrit 21.7 VOL% (35.7-47.0); Immature Granulocytes Absolute 0.63 #; Lymphocytes # 2.6 10*3/uL (1.4-4.0); Lymphocytes % 16.8 % (21.3-54.2); Mean Corpuscular HGB Conc 30.9 GM/DL (32-36); Mean Corpuscular Hemoglobin 30 PG (27-34); Mean Corpuscular Volume 96.9 FL (87-102); Mean Platelet Volume 10.7 FL (9.6-12.0); Monocytes # 1.8 10*3/uL (0.11-0.8); Monocytes % 11.7 % (1.7-12.7); NRBC # 0.12 10*3/uL; Neutrophils # 10.3 10*3/uL (1.4-7.4); Neutrophils % 65.4 % (38.7-73.9); Platelet Count 470 T/CUMM (130-400); Red Blood Count 2.24 MC/CUMM (3.8-5.5); Red Cell Distribution Width 17.7 % (9.3-17.3); White Blood Count 15.7 T/CUMM (4-12)
[2017-06-21 05:59] LABS: Hemoglobin 6.7 GM/DL (12.0-16.0)
[2017-06-21 06:06] LABS: Band Neutrophils 2 % (0-10); Hypochromasia 1+; Lymphocytes 18 % (20-55); Ovalocytes Slight; Platelet Estimate Adequate; Segmented Neutrophils 70 % (50-85); Total Cells Counted 100
[2017-06-21 06:07] LABS: Macrocytosis Slight; Polychromasia Slight
[2017-06-21] MEDS: FERROUS SULFATE 325 MG TABLET PO SCH (08:27)
[2017-06-21] MEDS: predniSONE 10 MG TABLET PO SCH (08:27)
[2017-06-21] MEDS: METOPROLOL TARTRATE 50 MG TABLET PO SCH ×2 (08:27→22:09)
[2017-06-21] MEDS: sulfaSALAzine 500 MG TABLET PO SCH ×3 (08:27→22:09)
[2017-06-21] MEDS: ZINC OXIDE PASTE 113 GM TUBE TOP SCH ×2 (08:28→22:10)
[2017-06-21] MEDS: PANTOPRAZOLE 40 MG VIAL IV SCH ×2 (08:28→22:10)
[2017-06-21] MEDS: INSULIN GLARGINE 100 UNIT/ML SUBCUT SCH ×2 (08:28→22:09)
[2017-06-21] MEDS: azaTHIOprine 50 MG TABLET PO SCH ×2 (08:29→22:09)
[2017-06-21] MEDS: ROSUVASTATIN 20 MG TABLET PO SCH (22:09)
[2017-06-22] MEDS: PROPOFOL 1,000 MG/100 ML BOTTLE IV SCH ×2 (01:53→14:13)
[2017-06-22 03:37] LABS: ABG Base Excess -5.1 MMOL/L (-2.5-2.5); ABG HCO3 20.1 MMOL/L (20-26); ABG Oxygen Saturation 94.3 % (95-100); ABG PCO2 41.4 MM HG (35-48); ABG PO2 76.8 MM HG (80-95); ABG TCO2 19.2 MMOL/L (23-27)
[2017-06-22] MEDS: PIPERACILLIN/TAZOBACTAM 3,375 MG in SODIUM CHLORIDE 0.9% 100 ML IV SCH ×2 (03:44→16:28)
[2017-06-22 04:06] LABS: Basophils # 0.1 10*3/uL (0.0-0.2); Basophils % 0.5 % (0.0-0.8); Eosinophils # 0.2 10*3/uL (0.0-0.87); Eosinophils % 1.7 % (0.00-10.9); Hematocrit 30.6 VOL% (35.7-47.0); Hemoglobin 9.8 GM/DL (12.0-16.0); Immature Granulocytes % 6.2 %; Lymphocytes # 2.1 10*3/uL (1.4-4.0); Lymphocytes % 14.5 % (21.3-54.2); Mean Corpuscular Hemoglobin 29 PG (27-34); Mean Corpuscular Volume 91.9 FL (87-102); Mean Platelet Volume 10.2 FL (9.6-12.0); Monocytes # 1.7 10*3/uL (0.11-0.8); Monocytes % 11.5 % (1.7-12.7); NRBC # 0.12 10*3/uL; Neutrophils # 9.5 10*3/uL (1.4-7.4); Neutrophils % 65.6 % (38.7-73.9); Platelet Count 393 T/CUMM (130-400); Red Blood Count 3.33 MC/CUMM (3.8-5.5); Red Cell Distribution Width 17.2 % (9.3-17.3); White Blood Count 14.5 T/CUMM (4-12)
[2017-06-22 04:47] LABS: Calcium 9.5 MG/DL (8.5-10.1); Magnesium 2.6 MG/DL (1.8-2.4); Osmolality,Calculated 299.1 MOS/KG (273-304); Potassium 5.1 MMOL/L (3.5-5.1)
[2017-06-22 05:10] LABS: Band Neutrophils 2 % (0-10); Lymphocytes 18 % (20-55); Myelocytes 1 %; Nucleated Red Blood Cells 1 (0-5); Platelet Estimate Adequate; Segmented Neutrophils 68 % (50-85); Total Cells Counted 100
[2017-06-22 05:11] LABS: Giant Platelets Few; Hypochromasia 1+; Macrocytosis Slight; Polychromasia Slight
[2017-06-22] MEDS: INSULIN REGULAR 100 UNIT/ML SUBCUT SCH ×3 (06:23→19:05)
[2017-06-22] MEDS: azaTHIOprine 50 MG TABLET PO SCH ×2 (08:42→21:23)
[2017-06-22] MEDS: FERROUS SULFATE 325 MG TABLET PO SCH (08:42)
[2017-06-22] MEDS: PANTOPRAZOLE 40 MG VIAL IV SCH ×2 (08:42→21:26)
[2017-06-22] MEDS: METOPROLOL TARTRATE 50 MG TABLET PO SCH ×2 (08:42→21:23)
[2017-06-22] MEDS: predniSONE 10 MG TABLET PO SCH (08:42)
[2017-06-22] MEDS: sulfaSALAzine 500 MG TABLET PO SCH ×3 (08:42→21:23)
[2017-06-22] MEDS: ZINC OXIDE PASTE 113 GM TUBE TOP SCH ×2 (08:43→21:29)
[2017-06-22] MEDS: INSULIN GLARGINE 100 UNIT/ML SUBCUT SCH ×2 (08:50→21:23)
[2017-06-22 09:05] LABS: ABG Base Excess -6.5 MMOL/L (-2.5-2.5); ABG HCO3 19.1 MMOL/L (20-26); ABG Oxygen Saturation 97.3 % (95-100); ABG PCO2 38.2 MM HG (35-48); ABG TCO2 17.8 MMOL/L (23-27)
[2017-06-22 13:06] LABS: ABG Base Excess -6.8 MMOL/L (-2.5-2.5); ABG HCO3 18.9 MMOL/L (20-26); ABG PCO2 38.8 MM HG (35-48); ABG PH 7.306 (7.35-7.45); ABG PO2 99.4 MM HG (80-95); ABG TCO2 20.1 MMOL/L (23-27); Allen Test Positive
[2017-06-22 15:07] LABS: ABG Base Excess -7.3 MMOL/L (-2.5-2.5); ABG HCO3 18.4 MMOL/L (20-26); ABG Oxygen Saturation 97.9 % (95-100); ABG PCO2 40.4 MM HG (35-48); ABG TCO2 17.6 MMOL/L (23-27); Allen Test Positive; Pt O2 Delivery Device Venturi Mask
[2017-06-22] MEDS: RACEPINEPHRINE 0.5 ML NEB RESP TX SCH ×2 (19:00→23:24)
[2017-06-22] MEDS: ACETAMINOPHEN 325 MG TABLET PO PRN (21:23)
[2017-06-22] MEDS: ROSUVASTATIN 20 MG TABLET PO SCH (21:23)
[2017-06-23] MEDS: INSULIN REGULAR 100 UNIT/ML SUBCUT SCH ×4 (00:15→18:21)
[2017-06-23] MEDS: RACEPINEPHRINE 0.5 ML NEB RESP TX SCH ×4 (00:46→07:25)
[2017-06-23] MEDS: PIPERACILLIN/TAZOBACTAM 3,375 MG in SODIUM CHLORIDE 0.9% 100 ML IV SCH ×2 (04:06→16:02)
[2017-06-23 04:21] LABS: Basophils # 0.1 10*3/uL (0.0-0.2); Basophils % 0.4 % (0.0-0.8); Eosinophils # 0.2 10*3/uL (0.0-0.87); Eosinophils % 1.1 % (0.00-10.9); Hematocrit 28.4 VOL% (35.7-47.0); Hemoglobin 8.9 GM/DL (12.0-16.0); Immature Granulocytes % 2.1 %; Lymphocytes # 2.1 10*3/uL (1.4-4.0); Lymphocytes % 11.1 % (21.3-54.2); Mean Corpuscular HGB Conc 31.3 GM/DL (32-36); Mean Corpuscular Hemoglobin 29 PG (27-34); Mean Corpuscular Volume 92.8 FL (87-102); Monocytes # 1.7 10*3/uL (0.11-0.8); Monocytes % 9.2 % (1.7-12.7); NRBC # 0.07 10*3/uL; Neutrophils # 14.2 10*3/uL (1.4-7.4); Neutrophils % 76.1 % (38.7-73.9); Platelet Count 403 T/CUMM (130-400); Red Blood Count 3.06 MC/CUMM (3.8-5.5); Red Cell Distribution Width 17.2 % (9.3-17.3); White Blood Count 18.6 T/CUMM (4-12)
[2017-06-23 04:53] LABS: Calcium 9.5 MG/DL (8.5-10.1); Magnesium 2.8 MG/DL (1.8-2.4); Potassium 5.1 MMOL/L (3.5-5.1)
[2017-06-23] MEDS ORDERED: LIDOCAINE 2% 20 ML VIAL RESP TX ONE (06:50)
[2017-06-23] MEDS ORDERED: LIDOCAINE 1% 20 ML VIAL MISC INJ ONE (06:50)
[2017-06-23] MEDS ORDERED: RACEPINEPHRINE 0.5 ML NEB RESP TX PRN (07:37)
[2017-06-23] MEDS: ZINC OXIDE PASTE 113 GM TUBE TOP SCH (13:45)
[2017-06-23] MEDS: sulfaSALAzine 500 MG TABLET PO SCH ×3 (13:45→20:46)
[2017-06-23] MEDS: INSULIN GLARGINE 100 UNIT/ML SUBCUT SCH ×2 (13:46→20:48)
[2017-06-23] MEDS: METOPROLOL TARTRATE 50 MG TABLET PO SCH ×2 (13:46→20:47)
[2017-06-23] MEDS: FERROUS SULFATE 325 MG TABLET PO SCH (13:46)
[2017-06-23] MEDS: azaTHIOprine 50 MG TABLET PO SCH ×2 (13:46→20:47)
[2017-06-23] MEDS: PANTOPRAZOLE 40 MG VIAL IV SCH ×2 (13:47→20:47)
[2017-06-23] MEDS: ACETAMINOPHEN 325 MG TABLET PO PRN (13:47)
[2017-06-23] MEDS: predniSONE 10 MG TABLET PO SCH (13:47)
[2017-06-23] MEDS: PROPOFOL 1,000 MG/100 ML BOTTLE IV SCH (15:02)
[2017-06-23] MEDS: ROSUVASTATIN 20 MG TABLET PO SCH (20:46)
[2017-06-24] MEDS: INSULIN REGULAR 100 UNIT/ML SUBCUT SCH ×2 (01:18→06:30)
[2017-06-24] MEDS: ZINC OXIDE PASTE 113 GM TUBE TOP SCH ×2 (01:18→12:32)
[2017-06-24] MEDS: PIPERACILLIN/TAZOBACTAM 3,375 MG in SODIUM CHLORIDE 0.9% 100 ML IV SCH (04:42)
[2017-06-24 05:04] LABS: Basophils # 0.1 10*3/uL (0.0-0.2); Basophils % 0.4 % (0.0-0.8); Eosinophils # 0.3 10*3/uL (0.0-0.87); Eosinophils % 1.6 % (0.00-10.9); Hematocrit 22.3 VOL% (35.7-47.0); Hemoglobin 7.3 GM/DL (12.0-16.0); Immature Granulocytes % 1.6 %; Immature Granulocytes Absolute 0.28 #; Lymphocytes # 1.9 10*3/uL (1.4-4.0); Lymphocytes % 10.6 % (21.3-54.2); Mean Corpuscular HGB Conc 32.7 GM/DL (32-36); Mean Corpuscular Hemoglobin 30 PG (27-34); Mean Corpuscular Volume 92.5 FL (87-102); Mean Platelet Volume 9.9 FL (9.6-12.0); Monocytes # 1.5 10*3/uL (0.11-0.8); Monocytes % 8.8 % (1.7-12.7); NRBC # 0.05 10*3/uL; Neutrophils # 13.4 10*3/uL (1.4-7.4); Platelet Count 324 T/CUMM (130-400); Red Blood Count 2.41 MC/CUMM (3.8-5.5); Red Cell Distribution Width 16.7 % (9.3-17.3); White Blood Count 17.5 T/CUMM (4-12)
[2017-06-24 05:40] LABS: Magnesium 2.5 MG/DL (1.8-2.4); Potassium 4.4 MMOL/L (3.5-5.1)
[2017-06-24 05:51] LABS: Magnesium 2.5 MG/DL (1.8-2.4); Phosphorous 7.2 MG/DL (2.5-4.9); Prealbumin 44.1 MG/DL (20-40)
[2017-06-24] MEDS ORDERED: DORNASE ALFA 2.5 MG/2.5 ML VIAL RESP TX SCH (07:00)
[2017-06-24] MEDS ORDERED: SODIUM CHLORIDE 0.9% 1,000 ML IV PRN (08:47)
[2017-06-24] MEDS: FERROUS SULFATE 325 MG TABLET PO SCH (09:30)
[2017-06-24] MEDS: PANTOPRAZOLE 40 MG VIAL IV SCH (09:30)
[2017-06-24] MEDS: sulfaSALAzine 500 MG TABLET PO SCH (09:30)
[2017-06-24] MEDS: azaTHIOprine 50 MG TABLET PO SCH (09:31)
[2017-06-24] MEDS: METOPROLOL TARTRATE 50 MG TABLET PO SCH (09:31)
[2017-06-24] MEDS: predniSONE 10 MG TABLET PO SCH (09:31)
[2017-06-24] MEDS: INSULIN GLARGINE 100 UNIT/ML SUBCUT SCH (09:31)
[2017-06-24 12:25] VITALS: BP 130/94
== END 2017-06-24 12:23 | DRG 246 ==
LOC: SUATTDRO → N.ED 02:04 → SUATTDRO 08:13 → N.EDINP 08:13 → N.4E 10:05 → N.CVR 06-10 10:37 → N.ICU 06-10 13:04
PROVIDERS: ADMIT Internal Medicine Geriatric Medicine; ATTEND Internal Medicine Geriatric Medicine